=== PATIENT | male | born 1990 | race Caucasian/White ===

== ENCOUNTER 2017-10-11 17:01 | Emergency (ER) | payer SELFPAY ==
[~2017-10-11] VITALS: Ht 180.3 cm; Wt 71.2 kg
[2017-10-11 17:05] VITALS: BP 119/84
--- NOTE | 2017-10-11 17:06 | NUR ---
PT AMBULATES TO BED 11
--- NOTE | 2017-10-11 17:08 | NUR ---
PT. CAME INTO THE ED W/ C/O L EYE PAIN. PT. STATES " I WAS GRINDING SOME METAL YESTERDAY AND TOOK OFF MY GLASSES FOR A LITTLE AND I THINK SOMETHING FLEW INTO MY EYE BECAUSE IT STARTED HURTING, I RINSED IT BUT IT HAS NOT GOTTEN BETTER" PT. HAS 6/10 PAIN IN L EYE THAT IS NON RADIATING AND DESCRIBED BURNING AND "FEELS LIKE SOMETHING IS SCRAPING MY EYE". PUPILS EQUAL ROUND AND REACTIVE TO LIGHT 3MM, L EYE REDNESS NOTED WITHOUT DISCHARGE, ABLE TO FOLLOW PENLIGHT APPROPRIATELY. DENIES N/V/D, NO SOB. E.Parris [place] MADE AWARE. WILL CONTINUE TO MONITOR.
[2017-10-11] MEDS ORDERED: FLUORESCEIN OPTH STRIP 0.6 MG OP ONE (17:20)
[2017-10-11] MEDS ORDERED: TETRACAINE HCL/PF 0.5% OPTH 4 ML BTL OP ONE (17:20)
[2017-10-11] MEDS ORDERED: TETRACAINE HCL/PF 0.5% OPTH 4 ML BTL ONE (17:22)
--- NOTE | 2017-10-11 17:22 | NUR ---
DR. YAP AT BEDSIDE EXAMINING PATIENT.
[2017-10-11 17:45] VITALS: BP 120/84
--- NOTE | 2017-10-11 17:45 | NUR ---
Patient discharged with v/s stable. Written and verbal after care instructions given and explained. Patient alert, oriented and verbalized understanding of instructions. Ambulatory with steady gait. All questions addressed prior to discharge. ID band removed. Patient advised to follow up with PMD. Rx of OFLOXACIN given. Patient educated on indication of medication including possible reaction and side effects. Opportunity to ask questions provided and answered.
== END 2017-10-11 17:45 | disposition home or self-care (01) ==
LOC: MED 17:01
DX: T15.92XA Foreign body on external eye, part unspecified, left eye, initial encounter (principal); X58.XXXA Exposure to other specified factors, initial encounter; Y93.89 Activity, other specified; Y92.89 Other specified places as the place of occurrence of the external cause; Y99.8 Other external cause status
CPT/HCPCS: 65205; 99284

== ENCOUNTER 2020-03-31 16:40 | Emergency (ER) | payer MEDICAID ==
[~2020-03-31] VITALS: Ht 180.3 cm; Wt 72.6 kg
--- NOTE | 2020-03-31 16:46 | NUR ---
Dayana duran in ED - 03/31/20 at 1647 by MMTHEM Patient ambulated to bed 6. RN evaluating patient at bedside.
--- NOTE | 2020-03-31 16:47 | NUR ---
Patient ambulated to bed 8. RN evaluating patient at bedside.
[2020-03-31 16:49] VITALS: BP 144/93
--- NOTE | 2020-03-31 16:52 | NUR ---
29 y/o male c/o cephalgia, congestion, flu like symptoms X 4 days. Pt states this occurs everytime the weather changes. Generalized body ache 12/05, denies N/V. No PMH/RX NKA
[2020-03-31] MEDS ORDERED: NACL 0.9% 1,000 ML IV ONE (16:55)
[2020-03-31] MEDS ORDERED: KETOROLAC 30 MG/ML VIAL IVP ONE (16:55)
--- NOTE | 2020-03-31 17:03 | NUR ---
Dr. Corona is evaluating the patient at bedside.
--- NOTE | 2020-03-31 17:16 | NUR ---
Placed an IV to the left AC 22G, good blood return, no s/s infiltration or infection. NS bolus fluids running per ERMD.
--- NOTE | 2020-03-31 17:28 | NUR ---
Performed COVID 19 Novel on pt per ERMD orders. Sent to lab.
[2020-03-31 18:12] VITALS: BP 144/93
--- NOTE | 2020-03-31 18:13 | NUR ---
Patient discharged with v/s stable. Written and verbal after care instructions given and explained. Patient alert, oriented and verbalized understanding of instructions. Ambulatory with steady gait. All questions addressed prior to discharge. ID band removed. Patient advised to follow up with PMD. Rx of motrin 800mg TID PO, Sudafed 120mg BID PO, and Kake 5mg-325mg 1-2 tabs Q6hrs PO given. Patient educated on indication of medication including possible reaction and side effects. Opportunity to ask questions provided and answered.
== END 2020-03-31 18:13 | disposition home or self-care (01) ==
LOC: MED 16:40
DX: J01.90 Acute sinusitis, unspecified (principal); R51.9 Headache, unspecified; J10.1 Influenza due to other identified influenza virus with other respiratory manifestations; Z20.828 Contact with and (suspected) exposure to other viral communicable diseases
CPT/HCPCS: 96361; 96374; 99283; J1885; J7030; U0003

== ENCOUNTER 2021-10-25 19:22 | Emergency (ER) | payer MEDICAID ==
[~2021-10-25] VITALS: Ht 180.3 cm; Wt 65.8 kg
[2021-10-25 19:29] VITALS: BP 113/69
--- NOTE | 2021-10-25 19:36 | NUR ---
TO LOBBY FOLLOWING TRIAGE
--- NOTE | 2021-10-25 21:15 | NUR ---
DID NOT RESPOND TO BEING CALLED IN FROM LOBBY PER DR GOLDEN, OUSMANEBS
== END 2021-10-25 21:15 | disposition left against medical advice (07) ==
LOC: MED 19:22
DX: R53.1 Weakness (principal); R11.10 Vomiting, unspecified; Z53.21 Procedure and treatment not carried out due to patient leaving prior to being seen by health care provider; R19.7 Diarrhea, unspecified